=== PATIENT | female | born 1950 | race Hispanic/Latino ===

== ENCOUNTER → 2020-07-23 | Day surgery (SDC) | payer MEDICARE ==
[~2020-07-23] MED LIST: ATORVASTATIN CA20 MG PO; LISINOPRIL10 MG PO; OR PHACO EYE KIT ONE; PREOP PHACO EYE KIT ONE
[2020-07-23 14:06] VITALS: BP 159/72
== END | disposition home or self-care (01) ==
LOC: OR 11:32
PROVIDERS: ATTEND Ophthalmology
DX: H25.11 Age-related nuclear cataract, right eye (principal); I10 Essential (primary) hypertension; I25.10 Atherosclerotic heart disease of native coronary artery without angina pectoris; I25.2 Old myocardial infarction; Z01.812 Encounter for preprocedural laboratory examination; Z20.822 Contact with and (suspected) exposure to COVID-19
CPT/HCPCS: 66984; U0002; V2632